=== PATIENT | male | born 1930 | race Caucasian/White ===

== ENCOUNTER → 2019-07-31 | Outpatient (CLI) | payer MEDICARE ==
--- NOTE | 2019-07-31 11:14 | Diagnostic Imaging Report ---
Examination: CT head without contrast Clinical Indication: Dizziness. Giddiness. Technique: Transaxial noncontrast images from the skull base through the vertex were obtained. Sagittal and coronal reformatted images were done. Dose modulation, iterative reconstruction, and/or weight based adjustment of the mA/kV was utilized to reduce the radiation dose to as low as reasonably achievable. Comparison: None. Findings: Scalp: No abnormalities. Bones: Intact. No fractures. No blastic or lytic lesions. Brain sulci: Moderate volume loss for patient's age. Ventricles: No hydrocephalus. Extra-axial space: No abnormalities. Parenchyma: There are subtle patchy areas of low-attenuation within subcortical and periventricular white matter, nonspecific, but could represent microvascular ischemic disease. No masses, hemorrhage, or acute or chronic cortical based vascular insults. Suprasellar region: No abnormalities. Craniocervical junction: The foramen magnum is patent. No Chiari one malformation. Incidental findings: Atherosclerotic calcification of the cavernous and supraclinoid internal carotid arteries. Impression: 1. No acute intracranial finding. 2. Mild chronic microvascular ischemic change. 3. Moderate volume loss. Signed by: Dr. Amanda Watters M.D. on 07/31/2019 11:11 AM
--- NOTE | 2019-08-02 12:34 | Diagnostic Imaging Report ---
Examination: MRI SPINE CERVICAL WO CONTRAST History: Left arm numbness. Comparison studies: None Technique: Sagittal T1, T2 and IR, axial T2 and axial gradient echo intravenous contrast: None Findings: Alignment: Reversal of normal cervical lordosis centered at C4. No scoliosis. Cervicomedullary junction: No abnormalities. Patent foramen magnum. Soft tissues: No T2 hyperintense inflammatory changes. Spinal cord: Normal in size and signal from the foramen magnum through T1. Vertebrae: No fractures, infection or neoplasm. 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 Bridging anterior osteophyte from C3 through C5. Degenerative changes: C1-C2: No abnormalities. C2-C3: Asymmetric to the left disc osteophyte complex and bilateral uncovertebral arthropathy result in mild right and severe left neural foraminal narrowing and mild canal stenosis. C3-C4: Diffuse disc osteophyte complex and bilateral uncovertebral and facet arthropathy result in severe bilateral neural foraminal narrowing and moderate canal stenosis. C4-C5: Diffuse disc osteophyte complex and bilateral uncovertebral and facet arthropathy result in severe bilateral neural foraminal narrowing and severe canal stenosis. C5-C6: Diffuse disc osteophyte complex and bilateral uncovertebral and facet arthropathy result in severe bilateral neural foraminal narrowing and severe canal stenosis. C6-C7: Asymmetric to the left disc osteophyte complex and bilateral uncovertebral and facet arthropathy result in severe bilateral neural foraminal narrowing and mild canal stenosis. C7-T1: Diffuse disc osteophyte complex, bilateral uncovertebral and facet arthropathy and ligamentum flavum thickening result in severe bilateral neural foraminal narrowing and moderate canal stenosis. IMPRESSION: 1. 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 2. 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 Mild canal stenosis at C2-C3 and C6-C7. 3. Severe bilateral foraminal narrowing from C3-C4 through C7-T1. Signed by: Dr. Amanda Watters M.D. on 08/02/2019 12:31 PM
== END ==
LOC: RAD 08:49
PROVIDERS: ATTEND Family Medicine
DX: R42 Dizziness and giddiness (principal); M50.10 Cervical disc disorder with radiculopathy, unspecified cervical region
CPT/HCPCS: 70450; 72141; 93306; 93880